=== PATIENT | female | born 1980 | race Caucasian/White ===

== ENCOUNTER 2017-10-11 02:19 | Emergency (ER) | payer OTHER ==
[~2017-10-11] VITALS: Ht 167.6 cm; Wt 70.7 kg
[2017-10-11 03:01] LABS: HEMATOCRIT 45.3 % (36.0-46.0); HEMOGLOBIN 15.9 G/DL (11.9-15.5); MCH 30.1 PG (29.0-34.0); MCHC 35.1 G/DL (30.0-36.0); MCV 85.8 FL (83-99); PLATELET COUNT 206 K/uL (156-360); RBC DIS.WIDTH-CV 15.9 % (11.8-14.6); RBC DIS.WIDTH-SD 49.9 % (39-53); RED BLOOD COUNT 5.28 M/uL (3.80-5.20); WHITE BLOOD COUNT 7.6 K/uL (4.1-10.2)
[2017-10-11 03:13] LABS: CHLORIDE 95 mEq/L (99-109); SODIUM 137 mEq/L (136-147)
[2017-10-11 03:15] LABS: GLUCOSE 100 mg/dL (70-99)
[2017-10-11 03:18] LABS: SERUM ETHYL ALCOHOL 48 mg/dL
[2017-10-11 03:19] LABS: CREATININE 0.7 mg/dL (0.6-1.3); GFR ESTIMATE (CALCULATED) > 59 mL/min/; UREA NITROGEN (BUN) 6 mg/dL (9-23)
[2017-10-11 03:27] LABS: TROP-I INTERPRETATION NEGATIVE; TROPONIN-I < 0.01 ng/mL (0.0-0.30)
[2017-10-11 03:28] LABS: QUANTITATIVE HCG < 4.0 MIU/ML
[2017-10-11 05:34] LABS: APPEARANCE CLOUDY ((CLEAR)); BILIRUBIN SMALL; BLOOD MODERATE; COLOR AMBER ((YELLOW)); GLUCOSE (STRIP) NEGATIVE; KETONES 5; LEUKOCYTES MODERATE; NITRITE NEGATIVE; PROTEIN (STRIP) 100; SPECIFIC GRAVITY 1.019 (1.000-1.030)
[2017-10-11 05:38] LABS: BACTERIA 3+ /HPF; EPITHELIAL CELLS 1+ /HPF; MUCUS 4+ /LPF; WHITE BLOOD CELLS TNTC /HPF (0-5)
[2017-10-11 05:43] LABS: AMPHETAMINE NEGATIVE (500 ng/mL); BARBITURATES NEGATIVE (200 ng/mL); BENZODIAZEPINES NEGATIVE (150 ng/mL); BUPRENORPHINE NEGATIVE (10 ng/mL); COCAINE NEGATIVE (150 ng/mL); METHADONE NEGATIVE (200 ng/mL); METHAMPHETAMINE NEGATIVE (500 ng/mL); OPIATES (MORPHINE) NEGATIVE (100 ng/mL); OXYCODONE NEGATIVE (100 ng/mL); PHENCYCLIDINE NEGATIVE (25 ng/mL); PROPOXYPHENE NEGATIVE (300 ng/mL); THC CANNABINOIDS PRESUMPTIVE POSITIVE (50 ng/mL); TRICYCLIC ANTIDEPRESSANTS NEGATIVE (300 ng/mL)
[2017-10-11] MEDS ORDERED: VISTARIL50 MG PO (06:32)
[2017-10-11] MEDS ORDERED: KEFLEX500 MG PO (06:35)
[2017-10-11 06:52] LABS: TROP-I INTERPRETATION NEGATIVE; TROPONIN-I < 0.01 ng/mL (0.0-0.30)
[2017-10-11 08:08] VITALS: BP 114/67
== END 2017-10-11 08:23 | disposition home or self-care (01) ==
LOC: EME → EDBD 02:19 → EME 02:19
PROVIDERS: Physician Assistant
DX: R07.89 Other chest pain (principal); F41.0 Panic disorder [episodic paroxysmal anxiety]; E87.6 Hypokalemia; N39.0 Urinary tract infection, site not specified; Z82.49 Family history of ischemic heart disease and other diseases of the circulatory system; R11.2 Nausea with vomiting, unspecified; F17.200 Nicotine dependence, unspecified, uncomplicated
CPT/HCPCS: 71046; 80048; 81003; 84484; 84702; 84999; 85027; 87077; 87086; 87186; 93005; 99281; 99284; G0480; J1200; J2060; Q0177

== ENCOUNTER 2017-11-01 03:25 | Emergency (ER) | payer OTHER ==
[~2017-11-01] VITALS: Ht 167.6 cm; Wt 68.7 kg
[~2017-11-01 03:25] MED LIST: KEFLEX500 MG PO; VISTARIL50 MG PO
[2017-11-01 04:57] LABS: HEMATOCRIT 42.9 % (36.0-46.0); MCH 30.6 PG (29.0-34.0); MCV 87.6 FL (83-99); PLATELET COUNT 221 K/uL (156-360); RBC DIS.WIDTH-CV 16.5 % (11.8-14.6); RBC DIS.WIDTH-SD 52.3 % (39-53); WHITE BLOOD COUNT 10.6 K/uL (4.1-10.2)
[2017-11-01 05:06] LABS: ALBUMIN 4.5 g/dL (3.2-4.8); CHLORIDE 98 mEq/L (99-109); POTASSIUM 3.3 mEq/L (3.7-5.4); SODIUM 145 mEq/L (136-147)
[2017-11-01 05:08] LABS: GLUCOSE 121 mg/dL (70-99)
[2017-11-01 05:09] LABS: TOTAL PROTEIN 7.9 g/dL (6.4-8.3)
[2017-11-01 05:10] LABS: TOTAL BILIRUBIN 1.1 mg/dL (0.0-1.0)
[2017-11-01 05:12] LABS: ALKALINE PHOSPHATASE 113 IU/L (3-129); CREATININE 0.7 mg/dL (0.6-1.3); GFR ESTIMATE (CALCULATED) > 59 mL/min/
[2017-11-01 05:13] LABS: UREA NITROGEN (BUN) 10 mg/dL (9-23)
[2017-11-01 05:14] LABS: AST (GOT) 80 IU/L (2-34)
[2017-11-01 05:15] LABS: ALT (GPT) 61 IU/L (3-49); LIPASE 45 U/L (1.0-51.0)
[2017-11-01 06:02] LABS: QUANTITATIVE HCG < 4.0 MIU/ML
[2017-11-01] MEDS ORDERED: LIBRIUM25 MG PO (06:38)
[2017-11-01 07:19] VITALS: BP 130/96
== END 2017-11-01 07:25 | disposition home or self-care (01) ==
LOC: EME 03:25
DX: F10.230 Alcohol dependence with withdrawal, uncomplicated (principal); R74.0 Nonspecific elevation of levels of transaminase and lactic acid dehydrogenase [LDH]; K76.0 Fatty (change of) liver, not elsewhere classified; D27.0 Benign neoplasm of right ovary; F41.9 Anxiety disorder, unspecified; F17.200 Nicotine dependence, unspecified, uncomplicated; Z87.19 Personal history of other diseases of the digestive system; Z87.440 Personal history of urinary (tract) infections
CPT/HCPCS: 74177; 80053; 81003; 83690; 84702; 85027; 99281; 99285; J2060; J2765; J7030